=== PATIENT | female | born 1950 | race Caucasian/White ===

== ENCOUNTER → 2018-03-22 | Outpatient (CLI) | payer MEDICARE | LOC: RAD 13:59 | DX: K21.9 Gastro-esophageal reflux disease without esophagitis (principal); R52 Pain, unspecified ==

== ENCOUNTER → 2018-04-16 | Outpatient (CLI) | payer MEDICARE | LOC: RAD 14:38 | DX: M19.011 Primary osteoarthritis, right shoulder (principal) ==

== ENCOUNTER → 2018-04-30 | Outpatient (CLI) | payer MEDICARE | LOC: LAB 11:30 | DX: R73.9 Hyperglycemia, unspecified (principal) ==